=== PATIENT | male | born 1960 | race Two or more races ===

== ENCOUNTER 2016-09-17 15:27 | Emergency (ER) | payer OTHER ==
[~2016-09-17] VITALS: Ht 170.2 cm; Wt 88.5 kg
[2016-09-17 16:03] VITALS: BP 124/73
--- NOTE | 2016-09-17 16:22 | Diagnostic Imaging Report ---
Indication: Chest Pain Comparison: None A single view chest radiograph was obtained. Findings: Cardiomediastinal appearance is within normal limits for age. Pulmonary vascularity is appropriate. The diaphragmatic contour is smooth and costophrenic angles are sharp. No pleural effusions are identified. The bones are unremarkable. Impression: No acute findings
--- NOTE | 2016-09-17 16:28 | Diagnostic Imaging Report ---
Indication: Headache Technique: Contiguous 5 mm thick transaxial imaging of the head obtained in a Siemens Sensation [address] scanner. Soft tissue and bone windows generated. Total Dose length Product (DLP): [address] Dose Index Volume (CTDIvol): 70.38 mGy Comparison: none Findings: The size and configuration of the cortical sulci, basal cisterns, and ventricles are within normal limits for age. There is no mass effect, midline shift, or edema identified. There is no evidence of acute hemorrhage or abnormal intra-axial or extra-axial fluid collections. The bones and soft tissues are unremarkable. There is moderate mucosal thickening involving paranasal sinuses. Impression: No mass effect, edema or acute bleed. Chronic sinusitis The CT scanner at [facility] is accredited by the [employer] and the scans are performed using protocols designed to limit radiation exposure to as low as reasonably achievable to attain images of sufficient resolution adequate for diagnostic evaluation.
[2016-09-17 16:52] LABS: BASOPHILS % (AUTO) 1.4 % (0.0-2.0); EOSINOPHILS % (AUTO) 2.2 % (0.0-3.0); LYMPHOCYTES % (AUTO) 33.8 % (20.0-45.0); MEAN CORPUSCULAR HEMOGLOBIN 27.4 PG (27.0-31.0); MEAN CORPUSCULAR HGB CONC 31.2 G/DL (32.0-36.0); MEAN CORPUSCULAR VOLUME 88 FL (80-99); MEAN PLATELET VOLUME 6.9 FL (6.5-10.1); MONOCYTES % (AUTO) 9.4 % (1.0-10.0); NEUTROPHILS % (AUTO) 53.1 % (45.0-75.0); PLATELET COUNT 193 K/UL (150-450); WHITE BLOOD COUNT 9.4 K/UL (4.8-10.8)
--- NOTE | 2016-09-17 17:01 | Emergency Room Report ---
History of Present Illness General Chief Complaint: Dizziness Source: Patient Present Illness HPI 56 YO Male presents to the ED sent by PCP for evaluation of BURROUGHS, Dizziness and presyncopal episodes x 2 days. pt. denies PMHx, pt takes medications to for hyperlipidemia, DM, and HTN. Pt. reports 6 month hx of asthma that he was rx'd inhaler for and reports minimal improvement of his symptoms. Pt reports hx of "small VT" in the past. denies weakness, reports imbalance, denies recent illness, reports hx of chronic sinusitis for which he has been prescribed many antibiotics and otc medications for in the past including sinus surgery. pt. states he has a small erythematous tender area on the external nose, denies pustule. Denies CP, Palpitations, LOC, AMS, dizziness, Changes in Vision, Sensation, paresthesias, or a sudden severe headache. Allergies: Coded Allergies: No Known Allergies (Unverified , 09/17/16) Patient History Past Medical History: see triage record Past Surgical History: none Immunizations: UTD Reviewed Nursing Documentation: PMH: Agreed, PSxH: Agreed Nursing Documentation-PMH Hx Hypertension: Yes Hx Diabetes: Yes Review of Systems All Other Systems: negative except mentioned in HPI Physical Exam Vital Signs Date Time Temp Pulse Resp B/P Pulse Ox O2 Delivery O2 Flow Rate FiO2 09/17/16 15:33 98.1 71 20 124/73 95 Room Air Sp02 EP Interpretation: reviewed, normal General Appearance: no apparent distress, alert, GCS 15, non-toxic Head: normocephalic, atraumatic Eyes: bilateral eye PERRL, bilateral eye normal inspection ENT: hearing grossly normal, normal pharynx, no angioedema, normal voice, TMs + canals normal, uvula midline, other - nares patent bilaterally, no appreciable congestion noted on PE, small area of external erythema, and mild swelling noted to the right nare, no pustule size is less than 2mm. Neck: full range of motion, supple/symm/no masses Respiratory: chest non-tender, lungs clear, normal breath sounds, no respiratory distress, no accessory muscle use, no wheezing, speaking full sentences Cardiovascular #1: regular rate, rhythm, no edema Gastrointestinal: normal bowel sounds, non tender, soft, no guarding, no rebound Rectal: deferred Genitourinary: normal inspection, no CVA tenderness Musculoskeletal: back normal, gait/station normal, normal range of motion, non- tender, no calf tenderness Neurologic: alert, oriented x3, responsive, motor strength/tone normal, sensory intact, cerebellar normal, normal gait, speech normal, no pronator, other - negative rhomberg test, assistant teacher strength is equal bilaterally, negative lozada's Psychiatric: judgement/insight normal, memory normal, mood/affect normal Skin: normal color, no rash, warm/dry, well hydrated, other - small area of external erythema, and mild swelling noted to the right nare, no pustule size is less than 2mm. Lymphatic: no adenopathy Medical Decision Making PA Attestation Dr. Brandt is my supervising Physician whom patient management has been discussed with. Diagnostic Impression: Primary Impression: Head ache Qualified Codes: R51 - Headache Additional Impression: Dizziness ER Course Pt. presents to the ED c/o 11/17 in severity BURROUGHS with pre-syncopal episodes with dizziness, and weakness x 2 days. was seen by PCP this am and told to go immediately to ED for evaluation to include head CT. Ddx considered but are not limited to dysrhythmia, methamphetamine, hypoglycemia , hypovolemia, intracranial process, vasovagal, VT, cellulitis, Vital signs: are WNL, pt. is afebrile H&PE are most consistent with BURROUGHS and dizziness with cardiac hx. no focal neurological deficit on PE. pt is NAD, non-toxic in appearance. ORDERS: -12-lead EK BPM NSR, with evidence of previous VT, and ventricular hypertrophy per preliminary interpretation by Dr. Brandt, no acute ST changes. -CBC, CMP: unremarkable, no appreciable electrolyte deficiency or evidence of anemia. - Troponin: WNL -CK-MB/ CK: WNL -CT HEAD No Contrast: No evidence of acute fracture, hemorrhage, or intracranial process Per official radiology report. - Orthostatic VS: Negative -CXR: Cardiomediastinal appearance is within normal limits for age. Pulmonary vascularity is appropriate. The diaphragmatic contour is smooth and costophrenic angles are sharp. No pleural effusions are identified. The bones are unremarkable.--Per official radiology report. ED INTERVENTIONS: -none required at this time. pt. states BURROUGHS has subsided. DISCHARGE: At this time pt. is stable for d/c to home. With close outpatient follow up. Will provide printed patient care instructions, and any necessary prescriptions. Care plan and follow up instructions have been discussed with the patient prior to discharge. Labs Test 09/17/16 16:40 White Blood Count 9.4 K/UL (4.8-10.8) Red Blood Count 5.50 M/UL (4.70-6.10) Hemoglobin 15.1 G/DL (14.2-18.0) Hematocrit 48.3 % (42.0-52.0) Mean Corpuscular Volume 88 FL (80-99) Mean Corpuscular Hemoglobin 27.4 PG (27.0-31.0) Mean Corpuscular Hemoglobin Concent 31.2 G/DL (32.0-36.0) Red Cell Distribution Width 13.0 % (11.6-14.8) Platelet Count 193 K/UL (150-450) Mean Platelet Volume 6.9 FL (6.5-10.1) Neutrophils (%) (Auto) 53.1 % (45.0-75.0) Lymphocytes (%) (Auto) 33.8 % (20.0-45.0) Monocytes (%) (Auto) 9.4 % (1.0-10.0) Eosinophils (%) (Auto) 2.2 % (0.0-3.0) Basophils (%) (Auto) 1.4 % (0.0-2.0) D-Dimer 249 ng/mL (<500) Sodium Level 136 mEQ/L (135-145) Potassium Level 4.4 mEQ/L (3.4-4.9) Chloride Level 94 mEQ/L (98-107) Carbon Dioxide Level 24 mEQ/L (20-30) Anion Gap 18 (5-15) Blood Urea Nitrogen 17 mg/dL (7-23) Creatinine 0.9 mg/dL (0.7-1.2) Estimat Glomerular Filtration Rate > 60 mL/min (>60) Glucose Level 105 mg/dL (74-106) Calcium Level 10.2 mg/dL (8.6-10.2) Total Bilirubin < 0.2 mg/dL (0.0-1.2) Aspartate Amino Transf (AST/SGOT) 29 U/L (5-40) Alanine Aminotransferase (ALT/SGPT) 37 U/L (3-41) Alkaline Phosphatase 63 U/L (40-129) Total Creatine Kinase 43 U/L (38-174) Creatine Kinase MB 1.6 ng/mL (< 6.7) Creatine Kinase MB Relative Index 3.7 Troponin I < 0.30 ng/mL (<=0.30) Total Protein 7.5 g/dL (6.6-8.7) Albumin 4.4 g/dL (3.5-5.2) Globulin 3.1 g/dL Albumin/Globulin Ratio 1.4 (1.0-2.7) EKG Diagnostic Results EP Interpretation: interpreted by Dr. Brandt Rate: normal - 69 bpm Rhythm: NSR ST Segments: no acute changes PA Scribe Text , incomplete RBBB, evidence of previous VT, and ventricular hypertrophy per preliminary ED read by Dr. Brandt. Last Vital Signs Date Time Temp Pulse Resp B/P Pulse Ox O2 Delivery O2 Flow Rate FiO2 09/17/16 16:03 98.1 82 20 124/73 95 Room Air Disposition: HOME, SELF-CARE Condition: Stable Scripts Bacitracin/Polymyxin B Sulfate (BACITRACIN-POLYMYXIN OINTMENT) 28.35 Gm Oint...g. 1 APPLIC TP BID, #28.3 GM Prov: Rosa Joaquin 09/17/16 Acetaminophen* (TYLENOL EXTRA STRENGTH*) 500 Mg Tablet 500 MG ORAL Q6H, #20 TAB 0 Refills Prov: Rosa Joaquin 09/17/16 Referrals: NOT CHOSEN IPA/MD,REFERRING (PCP) Patient Instructions: General Headache Without Cause Additional Instructions: Take medications as directed. Follow up with PCP in 3-5 days Return sooner to ED if new symptoms occur, or current symptoms become worse. - Please note that this Emergency Department Report was dictated using [employer] box tender technology software, occasionally this can lead to erroneous entry secondary to interpretation by the dictation equipment. Rosa Joaquin September 17, 2016 17:01
[2016-09-17 17:09] LABS: ALANINE AMINOTRANSFERASE 37 U/L (3-41); ALBUMIN/GLOBULIN RATIO 1.4 (1.0-2.7); ANION GAP 18 (5-15); ASPARTATE AMINO TRANSFERASE 29 U/L (5-40); CALCIUM 10.2 mg/dL (8.6-10.2); CARBON DIOXIDE 24 mEQ/L (20-30); CHLORIDE 94 mEQ/L (98-107); CREATININE 0.9 mg/dL (0.7-1.2); GLOMERULAR FILTRATION RATE > 60 mL/min (>60); HEMOLYSIS 9; POTASSIUM 4.4 mEQ/L (3.4-4.9); SODIUM 136 mEQ/L (135-145); TOTAL PROTEIN 7.5 g/dL (6.6-8.7)
[2016-09-17 17:10] LABS: TROPONIN I < 0.30 ng/mL (<=0.30)
[2016-09-17 17:20] LABS: CKMB 1.6 ng/mL (< 6.7)
[2016-09-17] MEDS ORDERED: BACITRACIN-P28.35 GM TP (17:42)
[2016-09-17] MEDS ORDERED: TYLENOL EXTRA500 MG ORAL (17:42)
[2016-09-17 17:56] VITALS: BP 139/70
[2016-09-17 17:57] VITALS: BP_SYST 133; BP_SYST 137; BP_DIAS 84; BP_DIAS 93
[2016-09-17 17:58] VITALS: BP 137/84
--- NOTE | 2016-09-18 12:44 | Cardiology Report ---
APPROVED REPORT EKG Measurement Heart [id number] Normal sinus rhythm Right superior axis deviation Incomplete right bundle branch block Right ventricular hypertrophy Inferior infarct, age undetermined Abnormal ECG
== END 2016-09-17 18:07 | disposition home or self-care (01) ==
LOC: EMR 16:10
DX: R51 Headache (principal); R42 Dizziness and giddiness; E11.9 Type 2 diabetes mellitus without complications
CPT/HCPCS: 36415; 70450; 71010; 80053; 82550; 82553; 84484; 85025; 85379; 93005; 99284